=== PATIENT | female | born 1960 | race Caucasian/White ===

== ENCOUNTER 2023-07-16 02:25 | Emergency (ER) | payer MEDICAID ==
[~2023-07-16] VITALS: Ht 152.4 cm; Wt 80.0 kg
[~2023-07-16 02:25] MED LIST: FLEXERIL; LORATADINE; XANAX
[2023-07-16 02:30] VITALS: O2SAT 100
[2023-07-16 04:35] VITALS: TEMP 97.8
[2023-07-16] MEDS: ACETAMINOPHEN 325MG TABLET PO ONE (04:35)
[2023-07-16] MEDS: CYCLOBENZAPRINE 10MG TABLET PO ONE (04:36)
[2023-07-16] MEDS ORDERED: TOPUD PO (05:07)
[2023-07-16] MEDS ORDERED: CYCL10TA21 MT (05:07)
[2023-07-16 05:44] VITALS: BP 167/77; PULSE 67; RESP 22
== END 2023-07-16 05:50 | disposition home or self-care (01) ==
LOC: ER 02:25
DX: R07.81 Pleurodynia (principal); M25.561 Pain in right knee; I10 Essential (primary) hypertension; E78.00 Pure hypercholesterolemia, unspecified; Z88.6 Allergy status to analgesic agent; V49.9XXA Car occupant (driver) (passenger) injured in unspecified traffic accident, initial encounter; Y93.89 Activity, other specified; Y92.89 Other specified places as the place of occurrence of the external cause; Y99.8 Other external cause status
CPT/HCPCS: 71101; 73562; 99284